=== PATIENT | male | born 1945 | race Caucasian/White ===

== ENCOUNTER → 2021-08-22 | Day surgery (SDC) | payer MEDICARE, OTHER ==
[~2021-08-22] VITALS: Ht 172.7 cm; Wt 103.4 kg
[~2021-08-22] MED LIST: ALLERGY RELIEF10 M3 PO; ASPIRIN EC81 MG PO; CARVEDILOL3.125 MG PO; CRESTOR10 MG PO; MELOXICAM15 MG PO
[2021-08-22 06:53] LABS: HCT 44.4 % (42.0-52.0); HGB 14.4 g/dl (13.2-18.0); MCH 29.5 pg (25.0-31.0); MCHC 32.4 g/dL (32.0-36.0); MPV 11.8 fL (6.0-9.5); RBC 4.88 M/uL (4.70-6.00); RDW 13.7 % (11.5-14.0); WBC 7.3 K/uL (4.0-10.5)
[2021-08-22 07:18] LABS: ALBUMIN 3.6 g/dL (3.4-5.0); BILIRUBIN - TOTAL 0.7 mg/dL (0.2-1.0); CREATININE 0.95 mg/dL (0.67-1.17); GLOBULIN (CALCULATION) 3.5 g/dL; POTASSIUM 4.4 mmol/L (3.5-5.1); TOTAL PROTEIN 7.1 g/dL (6.4-8.2)
== END | disposition home or self-care (01) ==
LOC: FAS 07-19 07:00
PROVIDERS: Orthopaedic Surgery
DX: G56.03 Carpal tunnel syndrome, bilateral upper limbs (principal); M65.841 Other synovitis and tenosynovitis, right hand; Z91.041 Radiographic dye allergy status
CPT/HCPCS: 36415; 71045; 80053; 93005; J2704; J3010; J7120